=== PATIENT | male | born 1970 | race Caucasian/White ===

== ENCOUNTER 2022-05-29 10:29 | Emergency (ER) | payer BC ==
[2022-05-29 10:45] VITALS: BP 159/96; PULSE 86; RESP 17; TEMP 98.2; BMI 21.6
== END 2022-05-29 13:14 | disposition home or self-care (01) ==
LOC: JER 10:29 → JERFT 10:29
DX: L02.413 Cutaneous abscess of right upper limb (principal)
CPT/HCPCS: 87070; 87205; 99283-25

== ENCOUNTER 2022-07-21 04:18 | Day surgery (SDC) | payer BC ==
[2022-07-19 08:52] VITALS: BMI 23.3
[2022-07-21] MEDS ORDERED: BUPIVACAINE HCL/PF 0.5% (5MG/ML) 10 ML VIAL ONE (09:35)
[2022-07-21] MEDS ORDERED: PROPOFOL 20 ML ONE (10:00)
[2022-07-21] MEDS ORDERED: MIDAZOLAM HCL 2 MG/2 ML SINGLE DOSE VIAL ONE (10:00)
[2022-07-21] MEDS ORDERED: oxyCODONE HCL 5 MG TABLET PO PRN (10:09)
[2022-07-21] MEDS ORDERED: ONDANSETRON 4 MG/2 ML VIAL IVPUSH PRN (10:09)
[2022-07-21] MEDS ORDERED: LACTATED RINGERS SOLUTION 1,000 ML IV SCH (10:15)
[2022-07-21] MEDS ORDERED: LIDOCAINE HCL/PF 2% SDV 5ML VIAL ONE (10:27)
[2022-07-21] MEDS ORDERED: BUPIVACAINE HCL/PF 0.5% (5MG/ML) 10 ML VIAL IJ ONE ×3 (10:35→10:53)
[2022-07-21] MEDS ORDERED: ceFAZolin SODIUM 1 GM VIAL ONE (10:38)
[2022-07-21] MEDS ORDERED: ceFAZolin SODIUM 1 GM VIAL IVPB ONE (10:38)
[2022-07-21] MEDS ORDERED: LIDOCAINE HCL 1%, 10 MG/ML (20ML VIAL) INF ONE ×2 (10:53)
[2022-07-21] MEDS ORDERED: KETOROLAC TROMETHAMINE 30 MG/1 ML VIAL ONE (11:33)
[2022-07-21 12:55] VITALS: RESP 18
[2022-07-21 14:21] VITALS: BP 148/80; PULSE 60; TEMP 98.4
== END 2022-07-21 14:15 | disposition home or self-care (01) ==
LOC: JASU-SURG 04:18
PROVIDERS: ATTEND Surgery
PROC: 0HB6XZZ Excision of Back Skin, External Approach (ICD-10-PCS; principal; 2022-07-21 10:00)
DX: L72.3 Sebaceous cyst (principal); L91.8 Other hypertrophic disorders of the skin
CPT/HCPCS: 88304-TC; 94760